=== PATIENT | female | born 1990 | race African-American/Black ===

== ENCOUNTER 2019-12-21 11:35 | Emergency (ER) | payer OTHER, SELFPAY ==
[2019-12-21 11:48] VITALS: BP 140/89; PULSE 77; RESP 16; TEMP 37.1; O2SAT 98
--- NOTE | 2019-12-21 11:49 | ED.SKABFB ---
HPI - Skin/Abscess/Foreign Bdy General Chief complaint: Skin/Abscess/Foreign Body Stated complaint: Burning rash Source: patient and RN notes reviewed Mode of arrival: ambulatory Limitations: no limitations History of Present Illness HPI narrative: This is a 29 years old female presents to the office for an evaluation of rash/skin lesions on her left armpit. Onset a couple days ago. State, lesion was itchy at the beginning which she scratches. The very next day she noticed burning sensation and the lesion has spread. Currently is very painful to touch. Denies sick contact. Denies recent shaving. Admits to history of abscess in her left armpit in the past without I&D. Denies history of MRSA. Related Data Allergies Allergy/AdvReac Type Severity Reaction Status Date / Time No Known Allergies Allergy Unverified 02/28/18 12:09 Review of Systems Review of Systems: Narrative: CONSTITUTIONAL: Denies fever or feeling ill ENT: Denies congestion CARDIOVASCULAR: Denies chest pain RESPIRATORY: Denies dyspnea, cough GASTROINTESTINAL: Denies abdominal pain, nausea, vomiting SKIN: Reports painful lesions on her left armpit; which she tried hydrocortison cream with no relief. MUSCULOSKELETAL: Denies joints pain NEUROLOGIC: Denies lightheaded All other systems reviewed are negative, except as documented in HPI. PMFSH Comments At time of signature, I agree with nursing past medical, surgical, social and family history. There is no relevant family history pertinent to the presenting complaint. Exam Narrative: Exam Narrative: GENERAL: This is a well-nourished, well-developed patient, in no apparent distress. NECK: Neck supple, non-tender without lymphadenopathy, masses or thyromegaly. CARDIOVASCULAR: Regular rate and rhythm without murmurs, gallops, or rubs. RESPIRATORY: Clear to auscultation. Breath sounds equal bilaterally. No wheezes, rales, or rhonchi. GASTROINTESTINAL: Abdomen soft, non-tender, nondistended. Bowel sounds are active. No hepato-splenomegaly, or palpable masses. No guarding. SKIN: Right armpit normal. Left armpit noted a few scatter erythema papules and some grouped together with tenderness to palpation. No lymphadenititis. NEURO: awake, alert, and oriented to person, place and time. There were no obvious focal neurologic abnormalities. Steady gait EXTREMITIES: Normal range of motion. No edema. Emilio Coma Scale Eye Opening: Spontaneous 4 [place] Coma Scale Motor: Obeys Commands 6 [place]ilio Coma Scale Verbal: Oriented 5 Course Vital Signs Vital signs: Vital Signs Temperature 98.7 F 12/21/19 11:48 Pulse Rate 77 12/21/19 11:48 Respiratory Rate 16 12/21/19 11:48 Blood Pressure 140/89 12/21/19 11:48 Pulse Oximetry 98 12/21/19 11:48 Temperature 98.7 F 12/21/19 11:48 Pulse Rate 77 12/21/19 11:48 Respiratory Rate 16 12/21/19 11:48 Blood Pressure 140/89 12/21/19 11:48 Pulse Oximetry 98 12/21/19 11:48 MDM - Skin/Abscess/Foreign Bdy MDM Narrative Medical decision making narrative: Discharge instructions reviewed with patient, as well as provided in writing per nursing staff. The instructions also include specific and strict return/GO TO THE ER as well as f/u information. All questions have been answered, and the patient deny any further questions with discharge and discharge plan. Differential Diagnosis Differential diagnosis: Likely abscess of skin or subcutaneous tissue, dermatophytosis, cellulitis, eczema, insect bites, impetigo and contact dermatitis Critical Care Time Critical Care Time Critical Care Time: No Discharge Plan Discharge Clinical Impression: Carbuncle of axilla Patient Disposition: Home, Self-Care Condition: Stable Instructions: Antibiotic Form, Furunculosis and Carbunculosis (ED) Additional Instructions: Warm compress on affected area about 2-3 times a day, for about 10 to 15 minutes at a time only Avoid cleaning with alcohol, peroxide Keep
== END 2019-12-21 12:07 | disposition home or self-care (01) ==
PROVIDERS: Emergency Provider Nurse Practitioner
DX: L02.432 Carbuncle of left axilla (principal)
CPT/HCPCS: 99213; G0463